=== PATIENT | female | born 1990 ===

== ENCOUNTER → 2016-05-01 | Outpatient (CLI) | payer OTHER ==
--- NOTE | 2016-05-01 15:07 | REP ---
PA LATERAL CHEST: 05/01/2016. Clinical history: Cough. Findings: No comparison study. The lung comer are well inflated. There are peribronchial streaky densities and peribronchial thickening consistent with bronchitis or reactive airway disease. There is no dense consolidation or pleural effusion. The lateral view demonstrates pectus excavatum chest wall configuration. The heart, mediastinal and hilar contours are normal. Bony thorax shows no compression deformity or focal lesion in the spine. Visualized ribs and clavicles intact. No free air under the diaphragm. Impression: 1. Changes of bronchitis or reactive airway disease without acute infiltrate, effusion, cardiomegaly, edema, atelectasis or mass. 2. Pectus excavatum chest wall configuration noted. Signed by Silverio Gillis MD 05/01/2016 03:56 P
== END ==
LOC: M WUC 14:20
PROVIDERS: ATTEND Nurse Practitioner Family
DX: R05 Cough (principal)